=== PATIENT | male | born 1955 | race Caucasian/White ===

== ENCOUNTER 2017-05-18 17:27 | Emergency (ER) | payer SELFPAY ==
[2017-05-18 18:11] VITALS: TEMP 98.4; BMI 25.7
--- NOTE | 2017-05-18 18:14 | PDOC ---
History of Present Illness <Benson Pearson - Last Filed: 05/18/17 18:30> - General History Source: Patient Exam Limitations: No Limitations - History of Present Illness Initial Comments: 05/18/17 18:46 The patient is a 62 year old male with no significant past medical history who presents to the ED with 3 days of rash. Patient reports a gradual onset of back pain that started Sunday. Since then, patient reports he developed a rash throughout his left lower back and left lower abdomen. Patient describes the rash as a sharp pain and thinks his symptoms are related to Shingles. Patient reports applying calamine lotion to the site of rash with no relief of present symptoms. Denies fever or chills. Denies nausea, vomiting, or diarrhea. Denies dysuria or changes in urinary output. Denies any other symptoms. <Renita Acosta - Last Filed: 05/18/17 18:46> - General Chief Complaint: Rash Stated Complaint: PAINFUL RASH Time Seen by Provider: 05/18/17 17:43 Past History - Past Medical History Other medical history: DENIES - Psycho/Social/Smoking Cessation Hx Anxiety: No Suicidal Ideation: No Smoking History: Never smoked Information on smoking cessation initiated: No Hx Alcohol Use: No Drug/Substance Use Hx: No Substance Use Type: None <Benson Pearson - Last Filed: 05/18/17 18:30> <Renita Acosta - Last Filed: 05/18/17 18:46> - Past Medical History Allergies/Adverse Reactions: Allergies Allergy/AdvReac Type Severity Reaction Status Date / Time No Known Allergies Allergy Verified 05/18/17 17:28 Home Medications: Ambulatory Orders Acyclovir [Zovirax -] 800 mg PO 5XD #100 capsule 05/18/17 Oxycodone HCl 5 mg PO QID PRN #12 tablet MDD 4 05/18/17 Review of Systems - Review of Systems Able to Perform ROS?: Yes Comments:: 05/18/17 18:46 CONSTITUTIONAL: No reported: Fever, Chills, Diaphoresis, Generalized Weakness, Malaise, Loss of Appetite HEENT: No reported: Rhinorrhea, Nasal Congestion, Throat Pain, Throat Swelling, Difficulty Swallowing, Mouth Swelling, Ear Pain, Eye Pain, Visual Changes CARDIOVASCULAR: No reported: Chest Pain, Syncope, Palpitations, Irregular Heart Rate, Lightheadedness, Peripheral Edema RESPIRATORY: No reported: Cough, Shortness of Breath, SOB with Exertion, Orthopnea, Wheezing , Stridor, Hemoptysis GASTROINTESTINAL: No reported: Abdominal pain, Abdominal Distension, Nausea, Vomiting, Diarrhea, Constipation, Melena, Hematochezia GENITOURINARY: No reported: Dysuria, Frequency, Urgency, Hesitancy, Flank Pain, Genital Pain MUSCULOSKELETAL: + back pain No reported: Myalgia, Arthralgia, Joint Swelling, Neck Pain SKIN: + rash No reported:, Itching, Pallor HEMEATOLOGIC/IMMUNOLOGIC: No reported: Easy Bleeding, Easy Bruising, Lymphadenopathy, Frequent infections ENDOCRINE: No reported: Unexplained Weight Gain, Unexplained Weight Loss, Heat Intolerance , Cold Intolerance NEUROLOGIC: No reported: Headache, Focal Weakness, Paresthesias, Vertigo, Lightheadedness, Unsteady Gait, Seizure, Mental Status Changes, Incontinence PSYCHIATRIC: No reported: Anxiety, Depression All Other Systems: Reviewed and Negative <Renita Acosta - Last Filed: 05/18/17 18:46> *Physical Exam - Vital Signs Last Vital Signs Temp Pulse Resp BP Pulse Ox 98.4 F 87 16 197/112 100 05/18/17 17:28 05/18/17 17:28 05/18/17 17:28 05/18/17 17:28 05/18/17 17:28 <Benson Pearson - Last Filed: 05/18/17 18:30> - Vital Signs Last Vital Signs Temp Pulse Resp BP Pulse Ox 98.4 F 74 16 178/91 100 05/18/17 17:28 05/18/17 18:33 05/18/17 17:28 05/18/17 18:33 05/18/17 17:28 - Physical Exam Comments: 05/18/17 18:46 GENERAL: The patient is awake, alert, and fully oriented, Nontoxic - in no acute distress. HEAD: Normocephalic, atraumatic. NEUROLOGICAL: No facial assymetry, Normal speech, moving all 4 extremities spontaneously and symmetrically SKIN:+ erythematous vesicular lesions with red base along T8 distribution on the left flank. Warm, Dry, normal turgor, <Renita Acosta - Last Filed: 05/18/17 18:46> Medical Decision Making - Medical Decision Making 05/18/17 18:06 62y M no pmh presents with painful rash c/w zoster at T8 will dc with acyclovir , pain meds return precautions were discussed I discussed the physical exam findings, ancillary test results and final diagnoses with the patient. I answered all of the patient's questions. The patient was satisfied with the care received and felt comfortable with the discharge plan and treatment plan. The patient will call their primary care physician within 24 hours to arrange follow-up and will return to the Emergency Department with any new, persistent or worsening symptoms. <Benson Pearson - Last Filed: 05/18/17 18:30> *DC/Admit/Observation/Transfer - Discharge Dispostion Admit: No <Benson Pearson - Last Filed: 05/18/17 18:30> - Attestations Scribe Attestion: 05/18/17 18:46 Documentation prepared by Renita Acosta, acting as medical attendant for Benson Pearson MD <Renita Acosta - Last Filed: 05/18/17 18:46> Diagnosis at time of Disposition: Shingles rash Qualifiers: Herpes zoster complications: without complications Qualified Code(s): B02.9 - Zoster without complications - Discharge Dispostion Disposition: HOME Condition at time of disposition: Improved - Prescriptions Prescriptions: Oxycodone HCl 5 mg PO QID PRN #12 tablet MDD 4 PRN Reason: Pain Acyclovir [Zovirax -] 800 mg PO 5XD #100 capsule - Referrals Referrals: [facility] [Provider Group] - Patient Instructions Printed Discharge Instructions: DI for Shingles Additional Instructions: Return to the emergency department immediately with ANY new, persistent or worsening symptoms. You MUST call and follow up with your doctor tomorrow for further evaluation of your symptoms. Results were discussed with you. Please make sure your doctor reviews the results of your emergency evaluation. If you had any xrays during your visit, it was read preliminarily by myself, a Radiologist will review it and if there are any additional findings we will call you. Print Language: TOGOLESE
[2017-05-18 18:34] VITALS: BP 178/91; PULSE 74
== END 2017-05-18 18:34 | disposition home or self-care (01) ==
LOC: FER 17:27
DX: B02.9 Zoster without complications (principal)
CPT/HCPCS: 99281-25